=== PATIENT | female | born 1965 | race Two or more races ===

== ENCOUNTER 2019-03-20 07:32 | Inpatient (IN) | payer BC, MEDICARE ==
[~2019-03-20] VITALS: Ht 170.2 cm; Wt 99.8 kg
--- NOTE | 2019-03-20 07:40 | NUR ---
PT [id number], FROM [facility], C/O GENERALIZED WEAKNESS AND CHEST PAIN AT 0630 THIS MORNING. DENIES CHEST PAIN AT THIS TIME. -NV. PT AAOX4, VSS, BREATHING EVEN AND UNLABORED ON ROOM AIR. PT CONNECTED TO THE MONITOR AND POX
--- NOTE | 2019-03-20 07:55 | NUR ---
BLOOD DRAWN AND SENT TO LAB
--- NOTE | 2019-03-20 08:07 | NUR ---
XRAY AT BEDSIDE
[2019-03-20 08:08] LABS: BASOPHILS # (AUTO) 0.1 /CMM (0.0-0.2); EOSINOPHILS % (AUTO) 1.8 % (0.0-6.0); HEMATOCRIT 41 % (33-45); HEMOGLOBIN 13.9 g/dL (11.5-14.8); LYMPHOCYTES # (AUTO) 2.2 /CMM (0.8-4.8); MEAN CORPUSCULAR HGB CONC 34 g/dl (31.0-36.0); MEAN CORPUSCULAR VOLUME 88 fL (82-100); MONOCYTES # (AUTO) 0.4 /CMM (0.1-1.30); MONOCYTES % (AUTO) 6.2 % (2.0-12.0); NEUTROPHILS # (AUTO) 4.3 /CMM (1.8-8.9); PLATELET COUNT (AUTO) 178 /CMM (150-450); RED BLOOD CELL COUNT(AUTO) 4.67 MIL/uL (4.0-5.2); WHITE BLOOD COUNT (AUTO) 7.1 K/uL (4.3-11.0)
[2019-03-20 08:13] LABS: CALCIUM, SERUM 9.6 mg/dL (8.5-10.1)
[2019-03-20 08:19] LABS: ALBUMIN 4.1 g/dL (3.4-5.0); BILIRUBIN,DIRECT 0.2 mg/dL (0.0-0.2); BILIRUBIN,TOTAL 0.9 mg/dL (0.2-1.0); TOTAL PROTEIN, SERUM 7.6 g/dL (6.4-8.2)
[2019-03-20] MEDS ORDERED: ASPIRIN 325 MG TABLET PO ONE (08:30)
[2019-03-20] MEDS ORDERED: ASPIRIN 325 MG TABLET ONE (08:32)
--- NOTE | 2019-03-20 09:15 | NUR ---
DR. MATIAS AT BEDSIDE FOR EVAL.
--- NOTE | 2019-03-20 09:23 | NUR ---
CALLED [facility] ITS KRIS MARTINI
--- NOTE | 2019-03-20 09:23 | NUR ---
REPORT GIVEN TO ANGELA PRICE FOR SHAHEEN.
[2019-03-20] MEDS: ASPIRIN 81 MG TAB.CHEW PO SCH (09:30)
[2019-03-20] MEDS ORDERED: LAMO150T6 PO (09:44)
[2019-03-20] MEDS ORDERED: ATOR80TA PO (09:44)
[2019-03-20] MEDS ORDERED: METF-442 PO (09:44)
[2019-03-20] MEDS ORDERED: CLOP75TA15 PO (09:44)
[2019-03-20] MEDS ORDERED: FURO40TA5 PO (09:44)
[2019-03-20] MEDS ORDERED: LORA1TAB PO (09:44)
[2019-03-20] MEDS ORDERED: CAND4TAB3 PO (09:44)
[2019-03-20] MEDS ORDERED: ISOS30TA6 PO (09:44)
[2019-03-20] MEDS ORDERED: TEMA30CA PO (09:44)
[2019-03-20] MEDS ORDERED: CARV3.122 PO (09:44)
[2019-03-20] MEDS ORDERED: ASPI-1498 PO (09:44)
--- NOTE | 2019-03-20 09:46 | NUR ---
talked to pt, with mini rn and mau castro. states not suicidal and is here because she is having chest pain. will inform nursing supp.
--- NOTE | 2019-03-20 10:10 | NUR ---
PATIENT SEEN AND EVALUATED BY LOBITO MARTINI NP.
[2019-03-20 10:11] LABS: THYROID STIMULATING HORMONE 2.824 uIU/mL (0.358-3.74)
--- NOTE | 2019-03-20 10:15 | NUR ---
ULTRASOUND AT BEDSIDE
[2019-03-20] MEDS ORDERED: DEXTROSE 50%-WATER 50 ML DISP.SYRIN IV PRN (10:30)
--- NOTE | 2019-03-20 10:54 | NUR ---
PT TRANSFERRED TO 314-T IN STABLE CONDITION.
[2019-03-20 11:00] VITALS: BP 115/68
--- NOTE | 2019-03-20 11:05 | NUR ---
UNABLE TO DEPART PATIENT AT THIS TIME.
--- NOTE | 2019-03-20 11:10 | NUR ---
female pt. adm. to rm. 314-1.hooked up to tele.cta ordered ,troponin ordered and abnormal.
[2019-03-20] MEDS ORDERED: IOHEXOL-350 100 ML VIAL IV ONE ×2 (12:02→13:57)
[2019-03-20] MEDS ORDERED: CT SWABBABLE VALVE TRANS SET 1 EA INFUS.SET MC ONE (12:02)
[2019-03-20] MEDS ORDERED: IV NS 0.9% 250 ML IV ONE ×2 (12:02→13:57)
[2019-03-20] MEDS ORDERED: METOPROLOL TARTRATE INJ 5 MG/5 ML AMPUL ONE ×2 (12:24→13:21)
[2019-03-20] MEDS ORDERED: NITROGLYCERIN 0.4 MG/TAB BOTTLE SL ONE (12:30)
[2019-03-20] MEDS: METOPROLOL TARTRATE INJ 5 MG/5 ML AMPUL IVP PRN ×4 (12:35→13:14)
--- NOTE | 2019-03-20 13:00 | NUR ---
off floor for some time,brought back after completion of angio cindy here and midline placed rt. upper arm.lab drawn from midline.remains npo at this time.bp low lopressor held.
[2019-03-20] MEDS: ATORVASTATIN 40 MG TABLET PO SCH (15:00)
[2019-03-20] MEDS: METOPROLOL TARTRATE 25 MG TABLET PO SCH ×3 (15:00→23:09)
[2019-03-20] MEDS: LamoTRIgine 100 MG TABLET PO SCH (15:03)
[2019-03-20] MEDS: ENOXAPARIN SODIUM 100 MG/ML DISP.SYRIN SQ SCH ×2 (15:10→21:08)
--- NOTE | 2019-03-20 15:13 | NUR ---
CTA HEART WAS PERFORMED SPOKE WITH DR. HOPE REGARDING EXAM REQUESTED A REPEAT OF SCAN DUE TO MOTION ON BEHAVE OF PATIENT EXAM WAS UNABLE TO BE REPEATED A RESULT OF IV INFILTRATED AT THE END OF INJECTION HOUSE SUP SPOKE WITH RN REGARDING POSSIBLE LINE TO BE PUT IN SPOKE WITH DR. HOPE A SECOND TIME REGARDING ISSUE WITH NO IV LINE AND POSSIBLE LINE TO BE PUT IN STATED THE EXAM WILL BE READ AND INFORMATION WILL BE FORWARDED TO DR. MATIAS PT RETURNED TO 314-1
[2019-03-20] MEDS: BLOOD SUGAR DIAGNOSTIC 1 EACH STRIP IN SCH ×3 (15:27→21:08)
[2019-03-20 16:00] VITALS: BP 107/76
--- NOTE | 2019-03-20 16:59 | NUR ---
up walking on floor heart monitor héctor,advised her to get back to bed got upset and removed.monitor.monitor replaced.
--- NOTE | 2019-03-20 17:30 | NUR ---
PT. ENDORSED TO DEE MCNAMARA.
[2019-03-20] MEDS ORDERED: LOSARTAN POTASSIUM 25 MG TABLET PO SCH (18:00)
--- NOTE | 2019-03-20 18:00 | NUR ---
PER Juan MARTINI DENTAL INTERNSHIP REQUEST RN LEFT CT ANGIOGRAM RESULTS WITH DR. MATIAS'S OFFICE.
[2019-03-20] MEDS: METFORMIN 500 MG TABLET PO SCH (18:24)
[2019-03-20] MEDS: TICAGRELOR 90 MG TABLET PO SCH (18:24)
--- NOTE | 2019-03-20 19:15 | NUR ---
REGIONAL AIRLINE PILOT NOTE RECEIVED PT IN STABLE CONDITION A/O X3, CURRENTLY WATCHING TV. NO SIGNS OF SOB OR DISTRESS. NO C/O PAIN OR N/V. TELE MONITOR: SR W/ PVS 83. IV IN MARK MIDLINE IN PLACE. S/L. ALL CURRENT NEEDS ATTENDED TO. BED LOW, LOCKED, UPPER RAILS UP AND CALL LIGHT WITHIN REACH. WILL CONT. TO MONITOR.
[2019-03-20 20:22] VITALS: BP 134/56
[2019-03-20] MEDS: INSULIN REGULAR, HUMAN 100 UNIT/ML 3 ML VIAL SQ PRN (21:21)
[2019-03-20] MEDS ORDERED: CANDESARTAN CILEXETIL 4 MG TABLET PO SCH (22:00)
[2019-03-20] MEDS ORDERED: TEMAZEPAM 15 MG CAPSULE PO PRN (22:00)
[2019-03-20] MEDS ORDERED: ATORVASTATIN 40 MG TABLET PO SCH (22:00)
[2019-03-20] MEDS: LORAZEPAM 1 MG TABLET PO PRN (22:44)
[2019-03-21 04:56] VITALS: BP 104/62
[2019-03-21] MEDS: METOPROLOL TARTRATE 25 MG TABLET PO SCH ×4 (05:07→23:15)
--- NOTE | 2019-03-21 05:08 | NUR ---
LOCK EXPERT NOTE AM DOSE OF METROPOLOL HELD FOR BP 104/62, PT REMAINS IN STABLE CONDITION. WILL CONT. TO MONITOR.
[2019-03-21] MEDS: INSULIN REGULAR, HUMAN 100 UNIT/ML 3 ML VIAL SQ PRN ×3 (06:16→23:03)
--- NOTE | 2019-03-21 06:27 | NUR ---
MS RN NOTE PT IN STABLE CONDITION A/O X3, CURRENTLY WATCHING TV. NO SIGNS OF SOB OR DISTRESS. NO C/O PAIN OR N/V. TELE MONITOR: SR W/ PVS 88. IV IN MARK MIDLINE IN PLACE. S/L. ALL CURRENT NEEDS ATTENDED TO. BED LOW, LOCKED, UPPER RAILS UP AND CALL LIGHT WITHIN REACH. WILL CONT. TO MONITOR AND ENDORSE TO NEXT SHIFT FOR SHAHEEN.
[2019-03-21 06:30] LABS: BASOPHILS % (AUTO) 0.7 % (0.0-2.0); EOSINOPHILS % (AUTO) 1.1 % (0.0-6.0); HEMATOCRIT 38 % (33-45); HEMOGLOBIN 12.7 g/dL (11.5-14.8); LYMPHOCYTES # (AUTO) 2.3 /CMM (0.8-4.8); LYMPHOCYTES % (AUTO) 32.6 % (20.0-44.0); MEAN CORPUSCULAR HGB CONC 33 g/dl (31.0-36.0); MEAN CORPUSCULAR VOLUME 89 fL (82-100); MONOCYTES # (AUTO) 0.3 /CMM (0.1-1.30); MONOCYTES % (AUTO) 4.9 % (2.0-12.0); NEUTROPHILS # (AUTO) 4.2 /CMM (1.8-8.9); NEUTROPHILS % (AUTO) 60.7 % (43.0-81.0); PLATELET COUNT (AUTO) 152 /CMM (150-450); RED BLOOD CELL COUNT(AUTO) 4.28 MIL/uL (4.0-5.2); WHITE BLOOD COUNT (AUTO) 6.9 K/uL (4.3-11.0)
[2019-03-21] MEDS: BLOOD SUGAR DIAGNOSTIC 1 EACH STRIP IN SCH ×4 (06:35→23:02)
--- NOTE | 2019-03-21 07:30 | NUR ---
MODEL TECHNICIAN NOTES PT IN BED, ASLEEP, EASY TO AROUSE, ALERT AND ORIENTED, DENIES PAIN AT THIS TIME, RESPIRATIONS NORMAL, ON O2 AT 2 LPM VIA N/C, CALL LIGHT WITHIN REACH, PLAN OF CARE DISCUSSED WITH PT, VERBALIZED UNDERSTANDING, SAFETY PRECAUTIONS OBSERVED.
[2019-03-21 08:00] VITALS: BP 97/72
--- NOTE | 2019-03-21 08:58 | NUR ---
AUTHORS MOTIVATIONAL NOTES PT SEEN AND EXAMINED BY DR. MATIAS, PLAN OF CARE DISCUSSED WITH PT, VERBALIZED UNDERSTANDING.
[2019-03-21] MEDS: METFORMIN 500 MG TABLET PO SCH ×2 (09:00→17:00)
[2019-03-21] MEDS: LOSARTAN POTASSIUM 50 MG TABLET PO SCH (09:00)
[2019-03-21] MEDS: FUROSEMIDE 40 MG TABLET PO SCH (09:00)
[2019-03-21] MEDS: ISOSORBIDE MONONITRATE (30MG) 30 MG TAB.SR.24H PO SCH (09:00)
--- NOTE | 2019-03-21 09:00 | NUR ---
ARMAMENT INSTALLER NOTES LASIX HELD DUE TO LOW BP 97/72, METFORMIN HELD DUE TO PT HAD CTCA YESTERDAY.
[2019-03-21] MEDS: RIVAROXABAN 10 MG TABLET PO SCH ×2 (09:33→17:00)
[2019-03-21] MEDS: LamoTRIgine 100 MG TABLET PO SCH (09:34)
[2019-03-21] MEDS: ATORVASTATIN 40 MG TABLET PO SCH (09:34)
[2019-03-21] MEDS: CLOPIDOGREL BISULFATE 75 MG TABLET PO SCH (09:34)
[2019-03-21] MEDS: ASPIRIN 81 MG TAB.CHEW PO SCH (09:34)
[2019-03-21 09:59] LABS: ALBUMIN 4.1 g/dL (3.4-5.0); CREATININE 1.1 mg/dL (0.6-1.3); MAGNESIUM 2.2 mg/dL (1.8-2.4); PHOSPHORUS 3.3 mg/dL (2.5-4.9); POTASSIUM 4.4 mmol/L (3.5-5.1); TOTAL PROTEIN, SERUM 7.5 g/dL (6.4-8.2)
[2019-03-21] MEDS: TICAGRELOR 90 MG TABLET PO SCH ×2 (10:18→17:41)
[2019-03-21 11:11] LABS: THYROID STIMULATING HORMONE 2.418 uIU/mL (0.358-3.74)
[2019-03-21] MEDS ORDERED: ATOR40TA PO (11:50)
[2019-03-21] MEDS ORDERED: LOSA50TA3 PO (11:50)
[2019-03-21] MEDS ORDERED: TICA90TA PO (11:50)
[2019-03-21] MEDS ORDERED: RIVA10TA PO (11:50)
[2019-03-21] MEDS ORDERED: METO25TA20 PO (11:50)
--- NOTE | 2019-03-21 13:56 | NUR ---
Social service consult regarding pt. coming to [facility] from [facility]. Pt. is a 54 year old female who was brought to [facility] via rescue ambulance from [facility] for chest pain. RASHIDA met with the pt. bedside. Pt. is alert and oriented x 4. Pt's lynne was bedside, however stepped outside during the assessment. Pt. resides with her Lynne. Pt. states she her father recently and she has been depressed since then. Pt. began to cry. SW offered emotional support to the pt. Pt. 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 Pt. also states she has gained over 30 lbs since her father's passing and gets shortness of breath if she walks for too long. Pt. has a psychiatric diagnosis of Bipolar Disorder. Pt. appeared to be not happy with the nurse she had yesterday. RASHIDA requested if she would like to speak with the patient advocate, however pt. declined for now. Pt. states she does not want to go home after being medically discharged because she needs to get help with her depression. Pt. denies suicidal and homicidal ideations and visual/auditory hallucinations at this time. Pt. is pending psychiatric consultation at this time. Pt. is seeking voluntary hospitalization at this time.
--- NOTE | 2019-03-21 15:36 | NUR ---
RASHIDA contacted Lester at [facility] inquiring if pt. will have her bed at [facility] since pt. came from there. Per Lester, [facility] is still holding the bed and intake will contact RASHIDA. RASHIDA received a call from in intake requesting for RASHIDA to fax clinicals. Clinicals were faxed to .
[2019-03-21] MEDS: LORAZEPAM 1 MG TABLET PO PRN (15:44)
[2019-03-21 16:00] VITALS: BP 93/73
--- NOTE | 2019-03-21 16:54 | NUR ---
RN MS NOTES PT AWAKE, SITTING IN HER CHAIR, NO COMPLAINT OF PAIN, NOT IN DISTRESS, SEEN BY DR MARTINI AND DR. WONG, DISCHARGE ORDER GIVEN, PT INFORMED, DISCHARGE AND MEDICATION INSTRUCTIONS PROVIDED TO PT, VERBALIZED UNDERSTANDING, BELONGINGS ACCOUNTED FOR, PER LIVE IN HOUSEKEEPER, AWAITING BED AT [facility], PT INFORMED, NEEDS ATTENDED.
--- NOTE | 2019-03-21 17:00 | NUR ---
RN MS NOTES METFORMIN NOT GIVEN, PT HAD CTCA YESTERDAY.
--- NOTE | 2019-03-21 17:00 | NUR ---
RN MS NOTES PT RECEIVED DOSE OF XARELTO THIS MORNING, NEXT DOSE TOMORROW SCHEDULED.
--- NOTE | 2019-03-21 18:05 | NUR ---
RN MS NOTES PT AWAKE, ALERT AND ORIENTED, EATING DINNER, CALM AND COOPERATIVE AT THIS TIME, NOT IN PAIN OR DISTRESS, CALL LIGHT WITHIN REACH, NEEDS ATTENDED AT A TIMELY MANNER, AWAITING UPDATES FROM DERIVATIVES TRADER REGARDING DISCHARGE ARRANGEMENTS.
[2019-03-21 20:00] VITALS: BP 100/44
--- NOTE | 2019-03-21 20:22 | NUR ---
so [facility] call about discharge so [facility] called and they don't want to accept the patient until the troponin level is less then 0.039 per Juan clinical office machine repair shop supervisor for intake. requesting further evaluation. state it might be possible for transfer tonight if level is lower. call back phone [phone]
--- NOTE | 2019-03-21 20:26 | NUR ---
nate paged discharge delay, review evening medications nate is cement contractor and paged to inform of delay in discharge d/t troponin level of 0.1 and to inform of patients request for abilify 15 mg daily or seroquel 400mg hs to be ordered to help her sleep.
[2019-03-21] MEDS ORDERED: ARIPIPRAZOLE 5 MG TABLET PO SCH (21:00)
[2019-03-21] MEDS: QUETIAPINE FUMARATE 100 MG TABLET PO SCH (23:31)
--- NOTE | 2019-03-22 02:29 | NUR ---
abilify order modification. modified abilify order to match pt previous schedule, pt states she takes the medication at bedtime daily and order changed to match this schedule.
[2019-03-22] MEDS: METOPROLOL TARTRATE 25 MG TABLET PO SCH ×3 (06:02→17:06)
[2019-03-22] MEDS: BLOOD SUGAR DIAGNOSTIC 1 EACH STRIP IN SCH ×4 (06:12→23:27)
[2019-03-22] MEDS: INSULIN REGULAR, HUMAN 100 UNIT/ML 3 ML VIAL SQ PRN (06:16)
--- NOTE | 2019-03-22 07:30 | NUR ---
RN MS NOTES PT SITTING IN BED, AWAKE, ALERT AND ORIENTED, ASKING FOR HER BREAKFAST, NO COMPLAINT OF PAIN, NOT IN DISTRESS, CALL LIGHT WITHIN REACH, NEEDS ATTENDED.
[2019-03-22 08:00] VITALS: BP 146/74
--- NOTE | 2019-03-22 08:33 | NUR ---
RASHIDA was informed by dependency case manager Veronica that pt. did not leave for [facility] yesterday. RASHIDA contacted Lester who informed Juan FIELD from intake will contact RASHIDA. RASHIDA received a call from Juan stating pt's troponin level was too high for admission. Troponin level needs to be at 0.039 for admission to [facility]. RASHIDA updated Veronica with aforementioned information. Once troponin level is 0.039, RASHIDA to re-fax clinicals.
[2019-03-22] MEDS: TICAGRELOR 90 MG TABLET PO SCH ×2 (08:35→17:06)
[2019-03-22] MEDS: FUROSEMIDE 40 MG TABLET PO SCH (08:35)
[2019-03-22] MEDS: CLOPIDOGREL BISULFATE 75 MG TABLET PO SCH (08:35)
[2019-03-22] MEDS: LamoTRIgine 100 MG TABLET PO SCH (08:35)
[2019-03-22] MEDS: ISOSORBIDE MONONITRATE (30MG) 30 MG TAB.SR.24H PO SCH (08:35)
[2019-03-22] MEDS: ASPIRIN 81 MG TAB.CHEW PO SCH (08:35)
[2019-03-22] MEDS: ATORVASTATIN 40 MG TABLET PO SCH (08:35)
[2019-03-22] MEDS: LOSARTAN POTASSIUM 50 MG TABLET PO SCH (08:36)
[2019-03-22] MEDS: METFORMIN 500 MG TABLET PO SCH ×2 (08:36→17:06)
--- NOTE | 2019-03-22 11:31 | NUR ---
RN MS NOTES PT AWAKE, ALERT AND ORIENTED, NO COMPLAINT OF PAIN, NOT IN DISTRESS, CALL LIGHT WITHIN REACH, AWAITING PLACEMENT, SAFETY PRECAUTIONS OBSERVED, FREQUENT ROUNDING DONE, NEEDS ATTENDED.
[2019-03-22] MEDS: LORAZEPAM 1 MG TABLET PO PRN (12:38)
[2019-03-22 15:53] VITALS: BP 125/68
[2019-03-22] MEDS: RIVAROXABAN 10 MG TABLET PO SCH (17:07)
[2019-03-22] MEDS: ACETAMINOPHEN 325 MG TABLET PO PRN (18:03)
--- NOTE | 2019-03-22 18:17 | NUR ---
RN MS NOTES PT AWAKE, ALERT AND ORIENTED, SITTING IN HER CHAIR, RESPIRATIONS NORMAL, WITH COMPLAINT OF BACK PAIN, PAIN MEDS GIVEN ORDERED, PM MEDS GIVEN, BLOOD SUGAR CHECKED, NO S/S OF HYPO/HYPERGLYCEMIA, ENCOURAGED INCREASED PO INTAKE, CALL LIGHT WITHIN REACH, ALL NEEDS ATTENDED.
--- NOTE | 2019-03-22 19:20 | NUR ---
MS/RN NOTES RECEIVED PT. LYING IN BED RESTING. PT. IS EASILY AROUSABLE TO NAME. PT. IS AWAKE, ALERT AND ORIENTED X4. BREATHING EVEN AND UNLABORED ON 2LPM O2 VIA NC. NO SOB, RESPIRATORY DISTRESS OR COMPLAINTS OF PAIN NOTED AT THIS TIME. PT. WITH RIGHT UPPER ARM MIDLINE PRESENT, PATENT AND INTACT. BED LOCKED AND IN LOWEST POSITION, SIDE RAILS UP X3, CALL LIGHT WITHIN REACH, WILL CONTINUE TO MONITOR.
[2019-03-22 20:00] VITALS: BP 114/71
[2019-03-22] MEDS ORDERED: ARIPIPRAZOLE 5 MG TABLET PO SCH (22:00)
[2019-03-22] MEDS: QUETIAPINE FUMARATE 100 MG TABLET PO SCH (23:20)
--- NOTE | 2019-03-23 04:45 | NUR ---
MS/RN NOTES RECEIVED CALL FROM [facility] FROM INTAKE AT [facility]. PER EDER WHEN PATIENT IS READY TO BE DISCHARGED CALL HER BACK AT HER DIRECT LINE: . WILL NOTIFY DAYSHIFT NURSE TO COORDINATE WITH [facility].
[2019-03-23] MEDS: METOPROLOL TARTRATE 25 MG TABLET PO SCH ×3 (06:00→12:00)
[2019-03-23] MEDS: BLOOD SUGAR DIAGNOSTIC 1 EACH STRIP IN SCH ×2 (07:02→12:40)
--- NOTE | 2019-03-23 07:05 | NUR ---
MS/RN NOTES PT. IS LYING IN BED RESTING. BREATHING EVEN AND UNLABORED ON 2LPM O2 VIA NC. NO SOB, RESPIRATORY DISTRESS OR COMPLAINTS OF PAIN NOTED AT THIS TIME AND THROUGHOUT SHIFT. PT. WITH RIGHT UPPER ARM MIDLINE PRESENT, PATENT AND INTACT. ALL PT. NEEDS MET. PT. REFUSED BED BATH AND GOWN CHANGE. BED LOCKED AND IN LOWEST POSITION, SIDE RAILS UP X3, CALL LIGHT WITHIN REACH, WILL ENDORSE TO DAYSHIFT NURSE FOR CONTINUITY OF CARE.
--- NOTE | 2019-03-23 07:25 | NUR ---
MS RN OPENING NOTES RECEIVED PT IN BED. ASLEEP, EASILY AROUSED, A/O X3-4. PT TOLERATING RA, WITH NO ACUTE RESPIRATORY DISTRESS NOTED. PT DENIES ANY PAIN OR DISCOMFORT AT THIS TIME. PT ALSO DENIES ANY CONCERNS OR QUESTIONS AT THIS MOMENT. PIV TO MARK MIDLINE, FLUSHED WITH NS, INTACT AND OPERATIONAL. PT KEPT COMFORTABLE. CALL LIGHT KEPT WITHIN REACH. PT'S BED IN LOWEST, LOCKED POSITION WITH SR X3. WILL CONTINUE PLAN OF CARE.
[2019-03-23 08:00] VITALS: BP 112/67
[2019-03-23] MEDS: CLOPIDOGREL BISULFATE 75 MG TABLET PO SCH (08:55)
[2019-03-23] MEDS: LamoTRIgine 100 MG TABLET PO SCH (08:55)
[2019-03-23] MEDS: FUROSEMIDE 40 MG TABLET PO SCH (08:55)
[2019-03-23] MEDS: ASPIRIN 81 MG TAB.CHEW PO SCH (08:55)
[2019-03-23] MEDS: ATORVASTATIN 40 MG TABLET PO SCH (08:55)
[2019-03-23] MEDS: METFORMIN 500 MG TABLET PO SCH (08:55)
[2019-03-23 08:56] VITALS: BP 112/67
[2019-03-23] MEDS: LOSARTAN POTASSIUM 50 MG TABLET PO SCH (08:56)
[2019-03-23] MEDS: ISOSORBIDE MONONITRATE (30MG) 30 MG TAB.SR.24H PO SCH (08:56)
[2019-03-23] MEDS: TICAGRELOR 90 MG TABLET PO SCH (08:58)
[2019-03-23] MEDS: ACETAMINOPHEN 325 MG TABLET PO PRN (09:51)
[2019-03-23] MEDS: INSULIN REGULAR, HUMAN 100 UNIT/ML 3 ML VIAL SQ PRN (12:45)
[2019-03-23] MEDS ORDERED: ONDANSETRON HCL/PF 4 MG/2 ML VIAL IVP PRN (14:00)
--- NOTE | 2019-03-23 14:23 | NUR ---
MS TANK CAR RECONDITIONER NOTES PT TO DISCHARGE BACK TO [facility], REPORT GIVEN TO TIFFANIE. PT ON SUPPLEMENTARY OXYGEN AT 2L VIA NC, WITH NO ACUTE RESPIRATORY DISTRESS NOTED, PT SATURATION IS 99% AND STILL PREFERS SUPPLEMENTARY OXYGEN DURING TRANSPORT. PT DENIES ANY PAIN AT THE TIME OF DISCHARGE, BUT PT COMPLAINED OF NAUSEA, ZOFRAN 4MG GIVEN ORDERED. PRESCRIPTIONS GIVEN TO PT. DISCHARGE INSTRUCTIONS AND BELONGING LIST SIGNED AND REVIEWED BY PT. SKIN INTACT. PT REFUSED FOR SKIN ASSESSMENT, NO PICTURES TAKEN. RN EXPLAINED UNIT PROTOCOL, AND PT INSISTED TO REFUSE. PIV TO MARK MIDLINE, REMOVED AND DRESSING APPLIED. ALL NEEDS AND CARE PROVIDED TO PT. PT'S VITALS STABLE AND RECORDED. PT LEFT THE UNIT VIA GURNEY WITH 2EMTS. LEFT THE UNIT AT 1420. CN AND MD AWARE OF DISCHARGE.
--- NOTE | 2019-03-23 14:25 | NUR ---
MS RN NOTES PT REFUSED TO BE CHANGED OR CLEANED. PARAMEDICS MADE AWARE.
== END 2019-03-23 14:26 | DRG 281 ==
LOC: ER 07:36 → TELE 10:11 → MED 03-21 09:43
PROVIDERS: ADMIT Registered Nurse; ATTEND Registered Nurse
PROC: 05H933Z Insertion of Infusion Device into Right Brachial Vein, Percutaneous Approach (ICD-10-PCS; principal; 2019-03-20)
DX: I25.10 Atherosclerotic heart disease of native coronary artery without angina pectoris (principal); I21.A1 Myocardial infarction type 2; F31.64 Bipolar disorder, current episode mixed, severe, with psychotic features; E11.9 Type 2 diabetes mellitus without complications; I51.3 Intracardiac thrombosis, not elsewhere classified; I10 Essential (primary) hypertension; F41.9 Anxiety disorder, unspecified; K21.9 Gastro-esophageal reflux disease without esophagitis; Z95.5 Presence of coronary angioplasty implant and graft; Z86.74 Personal history of sudden cardiac arrest; E78.5 Hyperlipidemia, unspecified; Z88.2 Allergy status to sulfonamides; R53.1 Weakness; E66.01 Morbid (severe) obesity due to excess calories; Z68.34 Body mass index [BMI] 34.0-34.9, adult; Z79.01 Long term (current) use of anticoagulants
CPT/HCPCS: 36415; 71045-TC; 75574; 80048-TC; 80053-TC; 80061-TC; 80076-TC; 82962-TC; 83735-TC; 84100-TC; 84439-TC; 84443-TC; 84484-TC; 85025-TC; 87081-TC; 93307-TC; 97112-TC; 97116-TC; 97530-TC; G0378; J1650; J1815; J2405; J3490; J7050; Q9967